=== PATIENT | female | born 1955 | race Caucasian/White ===

== ENCOUNTER 2022-04-27 16:42 | Observation (INO) ==
[2022-04-27 17:32] LABS: ABS Eosinophils 0.1 10^3/ul (0-0.6); ABS Lymphocytes 1.8 10^3/ul (1.0-4.8); ABS Monocytes 0.4 10^3/ul (0-0.8); ABS Neutrophils 3.4 10^3/ul (1.5-7.7); Eosinophil % 1.6 %; Hematocrit 40 % (35-47); Hemoglobin 12.8 g/dL (12.0-16.0); Lymphocyte % 31.3 %; Mean Corpuscular HGB Conc 32 g/dL (31-36); Mean Corpuscular Hemoglobin 30 pg (27-31); Mean Corpuscular Volume 92 fL (80-97); Mean Platelet Volume 7.5 fL (7.4-10.4); Nucleated Red Blood Cells % 0.1; Platelet Count 314 10^3/uL (150-450); Red Blood Count 4.34 10^6 /uL (3.70-4.87); Red Cell Distribution Width 14 % (10-15); White Blood Count 5.7 10^3/uL (3.5-10.8)
[2022-04-27 17:40] LABS: INR 1.04 (0.89-1.11)
[2022-04-27 17:54] LABS: High Sens Troponin Baseline < 3 pg/mL (<15)
[2022-04-27 18:09] LABS: Albumin 4.7 g/dL (3.2-5.2); Anion Gap 9 mmol/L (2-11); Blood Urea Nitrogen 22 mg/dL (6-24); CO2 Carbon Dioxide 28 mmol/L (22-32); Calcium 10.2 mg/dL (8.6-10.3); Chloride 100 mmol/L (101-111); Globulin 2.6 g/dL (2-4); Glucose 109 mg/dL (70-100); Potassium 4.5 mmol/L (3.5-5.0); Sodium 137 mmol/L (135-145); Total Protein 7.3 g/dL (6.4-8.9); eGFR CKD-EPI 88.3 (>60)
[2022-04-27 18:10] LABS: ALT 16 U/L (7-52); AST 19 U/L (13-39); Albumin/Globulin Ratio 1.8 (1-3); Alkaline Phosphatase 50 U/L (35-149)
[2022-04-27 18:54] LABS: High Sensitivity Troponin 1 Hr < 3 pg/mL (<15)
[2022-04-27] MEDS ORDERED: Enoxaparin 40 MG/0.4 ML SYR SUBCUT SCH (23:00)
[2022-04-27] MEDS ORDERED: Albuterol 2.5mg/3 ml (0.083%) NEB.SOLN INH ONE (23:05)
[2022-04-28 06:00] LABS: ABS Eosinophils 0.1 10^3/ul (0-0.6); ABS Lymphocytes 1.9 10^3/ul (1.0-4.8); ABS Monocytes 0.4 10^3/ul (0-0.8); ABS Neutrophils 2.9 10^3/ul (1.5-7.7); Eosinophil % 2.3 %; Hematocrit 39 % (35-47); Hemoglobin 12.7 g/dL (12.0-16.0); Lymphocyte % 36.4 %; Mean Corpuscular HGB Conc 33 g/dL (31-36); Mean Corpuscular Hemoglobin 30 pg (27-31); Mean Corpuscular Volume 91 fL (80-97); Mean Platelet Volume 7.3 fL (7.4-10.4); Nucleated Red Blood Cells % 0.1; Platelet Count 269 10^3/uL (150-450); Red Blood Count 4.22 10^6 /uL (3.70-4.87); Red Cell Distribution Width 14 % (10-15); White Blood Count 5.4 10^3/uL (3.5-10.8)
[2022-04-28 06:45] LABS: Calcium 9.4 mg/dL (8.6-10.3); Potassium 4.5 mmol/L (3.5-5.0)
[2022-04-28 06:50] LABS: eGFR CKD-EPI 94.3 (>60)
[2022-04-28 13:05] VITALS: BP 124/69
== END 2022-04-28 22:59 | disposition home or self-care (01) ==
LOC: EDHOLD 16:42 → ED 16:42 → SUATTDRO 22:58 → EDHOLD 04-28 13:03
PROVIDERS: ADMIT Internal Medicine; ATTEND Hospitalist